=== PATIENT | male | born 1970 | race Caucasian/White ===

== ENCOUNTER 2018-02-11 09:29 | Emergency (ER) | payer OTHER, SELFPAY | END 2018-02-11 10:50 | disposition home or self-care (01) | PROVIDERS: Emergency Provider Emergency Medicine; Visit Provider Emergency Medicine | DX: J40 Bronchitis, not specified as acute or chronic (principal) | CPT/HCPCS: 71020; 71046; 99283 ==

== ENCOUNTER 2020-03-07 05:05 | Emergency (ER) | payer OTHER, SELFPAY ==
[2020-03-07 05:16] VITALS: BP 161/81; PULSE 72; RESP 18; TEMP 37; O2SAT 98; BMI 31.7
--- NOTE | 2020-03-07 05:25 | PC.NURSE ---
Pt states yesterday having uti symptoms with blood clots in urine. states unable to urinate starting about midnight. pain in pelvic area.
--- NOTE | 2020-03-07 05:25 | ED_ITS ---
HPI - Male Genitourinary General Chief complaint: Urogenital-Male Stated complaint: has uti, unable to uriante now, painful Time Seen by Provider: 03/07/20 05:25 Source: patient Mode of arrival: Ambulatory Limitations: no limitations History of Present Illness HPI Narrative: 49-year-old gentleman with mild asthma presents with 24 hours of dysuria, urgency and a single episode of hematuria. Notes no fevers but does have a dull backache, not specifically flank pain, no abdominal pain, no respiratory or cardiac symptoms, no rashes or diaphoresis. He notes that his last bowel movement was approximately 24 hours ago and he typically goes more frequently than that but does not feel particularly constipated. Symptoms started last night with urinary urgency and pain building a single episode of hematuria. He had a tele video appointment with his [facility] provider was diagnosed with the UTI and [place] [facility] [place] [facility] [place] he was unable to pick it up before the pharmacy closed yesterday. Woke up at 4:00 a.m. with severe pain and was unable to void. In the emergency department he had approximately 270 cc in his bladder and was able to successfully void with a postvoid residual around 20 cc. He did not have any clots in the urine sample given today. He denies any new sexual partners or penile discharge. Related Data Home Medications Medication Instructions Recorded Confirmed Vitamins 1 ea PO QDAY 02/22/18 02/22/18 fluticasone propion-salmeterol 1 inh INHALATION Q12H 02/22/18 02/22/18 [Advair Diskus] fluticasone propionate [Flonase 1 spray INTRANASAL DAILY PRN 02/22/18 02/22/18 Allergy Relief] naproxen 500 mg PO QDAY 02/22/18 02/22/18 Previous Rx's Medication Instructions Recorded phenazopyridine [Pyridium] 100 mg PO TID PRN #6 tab 03/07/20 sulfamethoxazole-trimethoprim 1 tab PO BID #10 tab 03/07/20 [Bactrim DS] Allergies Allergy/AdvReac Type Severity Reaction Status Date / Time No Known Drug Allergies Allergy Verified 02/22/18 11:10 Review of Systems Review of Systems Narrative: Remainder of review of systems including constitutional, ENT, cardiovascular, respiratory, GI, , musculoskeletal, skin, neurologic and psychiatric systems reviewed and are unremarkable except as noted in HPI. Patient History Medical History Asthma (Acute) Social History Smoking Status: Never smoker Smoking Status: Never smoker Substance Use Type: does not use Exam Narrative Exam Narrative: General: Alert appropriate in no acute distress Respiratory: Able to speak in full sentences, no obvious respiratory distress, no wheeze no rhonchi Cardiac: No murmurs, no tachycardia Abdomen: Soft, nontender nondistended no flank pain, no suprapubic tenderness Skin: No obvious rashes, warm and dry Neurologic: Grossly intact no obvious asymmetries or abnormalities Psych, appropriate insight and affect, cooperative Initial Vital Signs Initial Vital Signs: Vital Signs Temperature 98.6 F 03/07/20 05:16 Pulse Rate 72 03/07/20 05:16 Respiratory Rate 18 03/07/20 05:16 Blood Pressure 161/81 H 03/07/20 05:16 Pulse Oximetry 98 03/07/20 05:16 Course Orders Ordered: ED Orders 03/07/20 05:20 Urine Culture Stat Urine Microscopic Stat 03/07/20 05:48 Urinalysis Screen (Dip Only) Stat Discontinued Medications Phenazopyridine HCl (Pyridium) 200 mg PO NOW ONE Stop: 03/07/20 05:39 Last Admin: 03/07/20 05:50 Dose: 200 mg Documented by: RUBY Trimethoprim/Sulfamethoxazole (Bactrim Ds) 1 tab PO NOW ONE Stop: 03/07/20 05:39 Last Admin: 03/07/20 05:50 Dose: 1 tab Documented by: RUBY Vital Signs Vital signs: Vital Signs - 8 hr 03/07/20 05:16 Temperature 98.6 F Pulse Rate 72 Respiratory Rate 18 Blood Pressure 161/81 H Pulse Oximetry 98 MDM - Male Genitourinary Medical Records Attestation: I reviewed the patient's medical records. Lab Data Attestation: I reviewed the patient's lab results. Lab results narrative: Pre void residual 270 cc, postvoid residual 20 cc. Urine dip with large blood and large leukocytes. Labs: Lab Results 03/07/20 Range/Units 05:20 Urine RBC None seen (0-5/HPF) Urine WBC 10-30/hpf H (0-5/HPF) Ur Squamous Epith Cells 0-1 /hpf (0-5/HPF) Urine Bacteria Moderate (10-30) H (None) Ur Culture Indicated? Specimen cultured Urine Dip Bedside Urine Glucose Negative Bedside Urine Bilirubin - Negative Bedside Urine Ketone - Negative Urine Specific [place] 1.010 Bedside Urine Occult Blood +++ Bedside Urine pH 6.0 Bedside Urine Protein +/- 15 Bedside Urine Urobilinogen - Negative Bedside Urine Nitrite - Negative Bedside Urine Leukocytes +++ 500 Esterase MDM Narrative Medical decision making narrative: Presumptive UTI present for 24 hours. Will treat with Bactrim and peridium and begin both of those while he is here in the department this morning. Prescriptions given. No evidence of sepsis, renal stone, acute urinary retention, sexually transmitted infection, or pyelonephritis. Patient is safe for home discharge at this time. Discharge Plan Departure Patient Disposition: Home Clinical Impression: Urinary tract infection Qualifiers: Urinary tract infection type: acute cystitis Hematuria presence: with hematuria Qualified Code(s): N30.01 - Acute cystitis with hematuria Instructions: DI for Urinary Tract Infection (UTI) Activity Restrictions/Additional Instructions: Thank you for coming in tonight Your symptoms and description are all very consistent with a bladder infection. Wuith symptoms present for 24 hours, the low-grade back pain and the blood the sincere noticed in your urine I am going to suggest that we use 5 days of Bactrim, sulfa antibiotic, to treat your infection. Your urine has been collected and sent to the lab for culture. You will be contacted if we do need to change antibiotics for any reason. I have given you a dose of Pyridium, a medicine to help with the bladder spasm and relieve some of the pain that you are having. Prescriptions for 5 days of Septra and 3 days of peridium have been a electronically transmitted to [facility] on [address]. If you develop fevers, more pain in your kidney area, are unable to void at all, or other symptoms of concern, please return to the emergency room and I am happy to re-evaluate. I hope you feel better soon Prescriptions: New sulfamethoxazole-trimethoprim [Bactrim DS] 800-160 mg tablet 1 tab PO BID Qty: 10 RF: 0 phenazopyridine [Pyridium] 100 mg tablet 100 mg PO TID PRN (Reason: pain) Qty: 6 RF: 0 No Action fluticasone propion-salmeterol [Advair Diskus] 500-50 mcg/dose Blister With Device 1 inh INHALATION Q12H RF: 0 fluticasone propionate [Flonase Allergy Relief] 50 mcg/actuation [place],Suspension 1 spray INTRANASAL DAILY PRN (Reason: Allergy Symptoms) RF: 0 naproxen 500 mg Tablet,Delayed Release (Dr/Ec) 500 mg PO QDAY RF: 0 Vitamins 1 ea PO QDAY RF: 0
[2020-03-07 05:40] LABS: Bacteria Urine Moderate (10-30); Culture Indicated Urine Specimen Cultured; RBC Urine None Seen (0-5/HPF); Squamous Epithelial Cell Urine 0-1 /HPF (0-5/HPF); WBC Urine 10-30/HPF (0-5/HPF)
[2020-03-07] MEDS: PHENAZOPYRIDINE 100 MG TABLET 200 MG PO (05:50)
[2020-03-07] MEDS: TRIMETH/SULFA 160/800 (DS) TABLET 1 TAB PO (05:50)
--- NOTE | 2020-03-07 05:52 | PC.NURSE ---
Pt requested to go to the restroom to try again. this time patient was able to void and relieved pressure in pelvic area. repeated bladder scan.with low volume. states feels better after voiding.
[2020-03-07 06:05] VITALS: BP 159/84; PULSE 80; RESP 16; O2SAT 97
== END 2020-03-07 06:06 | disposition home or self-care (01) ==
PROVIDERS: Emergency Provider Emergency Medicine
DX: N30.01 Acute cystitis with hematuria (principal)
CPT/HCPCS: 51798; 81003; 81015; 87077; 87086; 87186; 99283

== ENCOUNTER 2022-11-01 10:50 | Emergency (ER) | payer OTHER, SELFPAY ==
[2022-11-01 11:09] VITALS: BP 122/76; PULSE 92; RESP 20; TEMP 36.6; O2SAT 96; BMI 31.7
--- NOTE | 2022-11-01 11:17 | DI.RAD.S_ITS ---
PROCEDURE: XR CHEST 1V INDICATIONS: Shortness of breath TECHNIQUE: One view of the chest was acquired. COMPARISON: [facility], CR, XR CHEST 2V, 02/22/2018, 10:02. FINDINGS: Surgical changes and devices: None. Lungs and pleura: Lungs are clear. No pleural effusions or pneumothorax. Mediastinum: Mediastinal contours appear normal. Heart size is normal. Bones and chest wall: No suspicious bony lesions. Overlying soft tissues appear unremarkable. IMPRESSION: No acute cardiopulmonary pathology. Dictated by: Selwyn Garner M.D. on 11/01/2022 at 11:37 Approved by: Selwyn Garner M.D. on 11/01/2022 at 11:37
[2022-11-01 11:56] LABS: Add Manual Diff / Slide Review NO; Basophils Absolute Auto 100 /uL (0-100); Basophils Percent Auto 0.3 % (0-2); Eosinophils Absolute Auto 0 /uL (0-450); Hematocrit 41.4 % (41-53); Hemoglobin 14.5 g/dL (13.5-17.5); Lymphocytes Absolute Auto 1800 /uL (1100-4500); Lymphocytes Percent Auto 10.6 % (25-40); Mean Corpuscular Hemoglobin 31.1 PG (26-34); Mean Corpuscular Volume 88.8 fL (80-100); Monocytes Absolute Auto 1400 /uL (0-900); Monocytes Percent Auto 8.2 % (3-14); Neutrophils Absolute Auto 13900 /uL (1500-7000); Neutrophils Percent Auto 80.9 % (50-75); Platelet Count 354 X10^3/uL (150-400); Red Blood Cell Count 4.66 X10^6/uL (4.5-5.9); White Blood Cell Count 17.3 X10^3/uL (4.5-11.0)
[2022-11-01 12:03] VITALS: PULSE 85; O2SAT 96
[2022-11-01 12:04] VITALS: BP 121/64; PULSE 75; O2SAT 97
[2022-11-01 12:05] LABS: Influenza A - CEPHEID Flu A NEGATIVE (NEGATIVE); Influenza B - CEPHEID Flu B NEGATIVE (NEGATIVE); Respiratory Syncytial Virus Negative (Negative)
[2022-11-01 12:05] LABS: Alanine Aminotransferase 28 IU/L (<50); Albumin 4.1 g/dL (3.5-5.0); Albumin Globulin Ratio 1.2 (1.0-2.8); Alkaline Phosphatase 50 U/L (38-126); Aspartate Aminotransferase 23 IU/L (17-59); Bilirubin Total 0.8 mg/dL (0.2-1.3); Blood Urea Nitrogen 18 mg/dL (9-20); Carbon Dioxide 26 mmol/L (22-32); Chloride 104 mmol/L (98-107); Estimated Glomerular Filt Rate > 60 mL/min (>60); Globulin 3.3 g/dL (1.7-4.1); Glucose 132 mg/dL (70-100); HEMOLYSIS < 15 (0-50); Lactate (Lactic Acid) 1.3 mmol/L (0.7-2.1); Potassium 4.4 mmol/L (3.4-5.1); Sodium 139 mmol/L (137-145); Total Protein 7.4 g/dL (6.3-8.2)
[2022-11-01 12:06] LABS: COVID-19 CEPHEID 4-PLEX PCR Negative (Negative)
--- NOTE | 2022-11-01 12:13 | ED.SOB ---
HPI - SOB/Dyspnea <Kameron Marie PA-C - Last Filed: 11/01/22 13:12> General Chief Complaint: Shortness of Breath/Dyspnea Stated Complaint: difficulty breathing, cough Time Seen by Provider: 11/01/22 11:57 Source: patient Mode of arrival: Ambulatory Limitations: no limitations History of Present Illness HPI Narrative: This is a 52-year-old male with a history of COPD and asthma presents to the emergency department complaining of shortness of breath onset 1 week ago. Patient states that his symptoms initially began with a URI symptoms, multiple COVID test negative, last week, the symptoms have improved states that the patient's shortness of breath has continued. He was seen at [facility] walk-in clinic 2 days ago where his albuterol dosing was increased and patient was given a course of prednisone. He has been taking the prednisone as prescribed without any significant relief of his shortness of breath. Denies any acute chest pain but does report some discomfort, denies fevers, swelling of the lower extremities, nausea, vomiting, abdominal pain, or any other concerning signs or symptoms. Related Data Home Medications Medication Instructions Recorded Confirmed Vitamins 1 ea PO QDAY 02/22/18 02/22/18 fluticasone 500 mcg-salmeterol 50 1 inh inhalation Q12H 02/22/18 02/22/18 mcg/dose blistr powdr for inhalation (Advair Diskus) fluticasone propionate 50 1 spray intranasal DAILY PRN 02/22/18 02/22/18 mcg/actuation nasal Allergy Symptoms spray,suspension (Flonase Allergy Relief) naproxen 500 mg tablet,delayed 500 mg PO QDAY 02/22/18 02/22/18 release Previous Rx's Medication Instructions Recorded phenazopyridine 100 mg tablet 100 mg PO TID PRN pain 6 doses #6 05/20/20 (Pyridium) tabs sulfamethoxazole 800 1 tab PO BID #10 tabs 05/20/20 mg-trimethoprim 160 mg tablet (Bactrim DS) benzonatate 100 mg capsule 100 mg PO BID PRN cough #20 caps 11/01/22 Allergies Allergy/AdvReac Type Severity Reaction Status Date / Time No Known Drug Allergies Allergy Verified 11/01/22 11:09 Review of Systems <Kameron Marie PA-C - Last Filed: 11/01/22 13:12> Review of Systems Narrative: GENERAL: Denies chills, fatigue, malaise, fever, sweats. HEENT: Denies sinus pain, ear pain, sore throat, difficulty swallowing, dizziness. RESPIRATORY: Reports shortness of breath, cough, denies wheezing, hemoptysis, sputum. CARDIOVASCULAR: Denies chest pain, palpitations, orthopnea, edema, GASTROINTESTINAL: Denies nausea, vomiting, abdominal pain, diarrhea, constipation, melena. : Denies dysuria, frequency, incontinence, hematuria, urinary retention. MUSCULOSKELETAL: denies weakness, joint pain, or bony pain SKIN: Denies rash, skin lesions, or other NEUROLOGIC: Denies weakness, headache, numbness, change in speech, confusion, seizures, incoordination. PSYCHIATRIC: No concerning psychosocial issues. 12 point review of systems is negative except for those stated above Patient History <Kameron Marie PA-C - Last Filed: 11/01/22 13:12> Medical History (Updated 11/01/22 @ 13:10 by Kameron Marie PA-C) Asthma Social History Smoking Status: Never smoker Smoking Status: Never smoker Substance Use Type: does not use Exam <Kameron Marie PA-C - Last Filed: 11/01/22 13:12> Narrative Exam Narrative: GENERAL: Well-developed patient, in mild distress. HEAD: Atraumatic. Normocephalic. EYES: Pupils equal round and reactive. Extraocular motions intact. No scleral icterus. No injection or drainage. ENT: Nose without bleeding, purulent drainage. Throat without erythema, tonsillar hypertrophy or exudate. Airway patent. NECK: Trachea midline. Non tender CARDIOVASCULAR: Regular rate and rhythm without murmurs, gallops, or rubs. RESPIRATORY: Clear to auscultation. Breath sounds equal bilaterally. No wheezes, rales, or rhonchi. GASTROINTESTINAL: Abdomen soft, non-tender, nondistended. EXTREMITIES: No edema or joint tenderness. BACK: Nontender without deformity or crepitance. No flank tenderness. NEURO: AOx3. SKIN: No rash or erythema of visible areas Initial Vital Signs Initial Vital Signs: Vital Signs Temperature 97.8 F 11/01/22 11:09 Pulse Rate 92 H 11/01/22 11:09 Respiratory Rate 20 11/01/22 11:09 Blood Pressure 122/76 11/01/22 11:09 Pulse Oximetry 96 11/01/22 11:09 Oxygen Delivery Method 11/01/22 11:09 <Iker Deluna DO - Last Filed: 11/02/22 06:36> Initial Vital Signs Initial Vital Signs: Vital Signs Temperature 97.8 F 11/01/22 11:09 Pulse Rate 92 H 11/01/22 11:09 Respiratory Rate 20 11/01/22 11:09 Blood Pressure 122/76 11/01/22 11:09 Pulse Oximetry 96 11/01/22 11:09 Oxygen Delivery Method 11/01/22 11:09 Course <Kameron Marie PA-C - Last Filed: 11/01/22 13:12> Orders Ordered: Discontinued Medications Albuterol/Ipratropium (Albuterol/Ipratropium 3 Ml Ampul) 3 ml INH NOW ONE Stop: 11/01/22 12:15 Last Admin: 11/01/22 12:18 Dose: 3 ml Documented By: NURA Methylprednisolone (Methylprednisolone 125 Mg/2 Ml Vial) 125 mg IV NOW ONE Stop: 11/01/22 12:25 Last Admin: 11/01/22 12:48 Dose: 125 mg Documented By: NR Vital Signs Vital signs: Vital Signs - 8 hr 11/01/22 11:09 11/01/22 12:03 11/01/22 12:18 Temperature 97.8 F Pulse Rate 92 H 85 86 Respiratory Rate 20 16 Blood Pressure 122/76 Pulse Oximetry 96 96 97 Oxygen Delivery Method Room Air Room Air Room Air <Iker Deluna DO - Last Filed: 11/02/22 06:36> Orders Ordered: Discontinued Medications Albuterol/Ipratropium (Albuterol/Ipratropium 3 Ml Ampul) 3 ml INH NOW ONE Stop: 11/01/22 12:15 Last Admin: 11/01/22 12:18 Dose: 3 ml Documented By: NURA Methylprednisolone (Methylprednisolone 125 Mg/2 Ml Vial) 125 mg IV NOW ONE Stop: 11/01/22 12:25 Last Admin: 11/01/22 12:48 Dose: 125 mg Documented By: NR Vital Signs Vital signs: Vital Signs - 8 hr 11/01/22 11:09 11/01/22 12:03 11/01/22 12:18 Temperature 97.8 F Pulse Rate 92 H 85 86 Respiratory Rate 20 16 Blood Pressure 122/76 Pulse Oximetry 96 96 97 Oxygen Delivery Method Room Air Room Air Room Air MDM - SOB/Dyspnea <Kameron Marie PA-C - Last Filed: 11/01/22 13:12> Lab Data Result diagrams: 11/01/22 11:40 11/01/22 11:40 Labs: Lab Results 11/01/22 11/01/22 11/01/22 Range/Units 11:15 11:40 11:40 WBC 17.3 H (4.5-11.0) X10^3/uL RBC 4.66 (4.5-5.9) X10^6/uL Hgb 14.5 (13.5-17.5) g/dL Hct 41.4 (41-53) % MCV 88.8 (80-100) fL MCH 31.1 (26-34) PG MCHC 35.0 (30-36) % RDW 13.0 (11.6-14.8) % Plt Count 354 (150-400) X10^3/uL Neut % (Auto) 80.9 H (50-75) % Lymph % (Auto) 10.6 L (25-40) % [place] % (Auto) 8.2 (3-14) % Eos % (Auto) 0.0 L (2-4) % Baso % (Auto) 0.3 (0-2) % Neut # (Auto) 40552 H (8620-4317) /uL Lymph # (Auto) 1800 (0922-2624) /uL [place] # (Auto) 1400 H (0-900) /uL Eos # (Auto) 0 (0-450) /uL Baso # (Auto) 100 (0-100) /uL D-Dimer (<500) ng/ml Sodium 139 (137-145) mmol/L Potassium 4.4 (3.4-5.1) mmol/L Chloride 104 (98-107) mmol/L Carbon Dioxide 26 (22-32) mmol/L BUN 18 (9-20) mg/dL Creatinine 0.75 (0.66-1.25) mg/dL Estimated GFR > 60 (>60) mL/min BUN/Creatinine Ratio 24.0 H (6-22) Glucose 132 H (70-100) mg/dL Lactate (0.7-2.1) mmol/L Calcium 9.0 (8.4-10.2) mg/dL Total Bilirubin 0.8 (0.2-1.3) mg/dL AST 23 (17-59) IU/L ALT 28 (<50) IU/L Alkaline Phosphatase 50 (38-126) U/L Troponin I < 0.012 (0.01-0.034) ng/mL NT-Pro-B Natriuret Pep 133 H (<125) pg/mL Total Protein 7.4 (6.3-8.2) g/dL Albumin 4.1 (3.5-5.0) g/dL Globulin 3.3 (1.7-4.1) g/dL Albumin/Globulin Ratio 1.2 (1.0-2.8) SARS-CoV-2 (PCR) Negative (Negative) Influenza A (RT-PCR) Flu a negative (NEGATIVE) Influenza B (RT-PCR) Flu b negative (NEGATIVE) RSV (PCR) Negative (Negative) 11/01/22 11/01/22 Range/Units 11:40 11:40 WBC (4.5-11.0) X10^3/uL RBC (4.5-5.9) X10^6/uL Hgb (13.5-17.5) g/dL Hct (41-53) % MCV (80-100) fL MCH (26-34) PG MCHC (30-36) % RDW (11.6-14.8) % Plt Count (150-400) X10^3/uL Neut % (Auto) (50-75) % Lymph % (Auto) (25-40) % [place] % (Auto) (3-14) % Eos % (Auto) (2-4) % Baso % (Auto) (0-2) % Neut # (Auto) (2962-3022) /uL Lymph # (Auto) (0030-6361) /uL [place] # (Auto) (0-900) /uL Eos # (Auto) (0-450) /uL Baso # (Auto) (0-100) /uL D-Dimer 329 (<500) ng/ml Sodium (137-145) mmol/L Potassium (3.4-5.1) mmol/L Chloride (98-107) mmol/L Carbon Dioxide (22-32) mmol/L BUN (9-20) mg/dL Creatinine (0.66-1.25) mg/dL Estimated GFR (>60) mL/min BUN/Creatinine Ratio (6-22) Glucose (70-100) mg/dL Lactate 1.3 (0.7-2.1) mmol/L Calcium (8.4-10.2) mg/dL Total Bilirubin (0.2-1.3) mg/dL AST (17-59) IU/L ALT (<50) IU/L Alkaline Phosphatase (38-126) U/L Troponin I (0.01-0.034) ng/mL NT-Pro-B Natriuret Pep (<125) pg/mL Total Protein (6.3-8.2) g/dL Albumin (3.5-5.0) g/dL Globulin (1.7-4.1) g/dL Albumin/Globulin Ratio (1.0-2.8) SARS-CoV-2 (PCR) (Negative) Influenza A (RT-PCR) (NEGATIVE) Influenza B (RT-PCR) (NEGATIVE) RSV (PCR) (Negative) Imaging Data Chest x-ray: Radiologist's Impression: [address] [address] XRay Report Signed Patient: Thomas Fox MR#: [id number] : 1970 Acct:[id number] Age/Sex: 52 / M Date of Service: 11/01/22 Loc: ED Accession Number: [id number] ?? Procedure: XR chest 1V Ordering Provider: Iker Deluna D.O. PROCEDURE:? XR CHEST 1V ? INDICATIONS:? Shortness of breath ? TECHNIQUE:? One view of the chest was acquired.? ? COMPARISON:? [facility], CR, XR CHEST 2V, 02/22/2018, 10:02. ? FINDINGS:? ? Surgical changes and devices:? None.? ? Lungs and pleura:? Lungs are clear.? No pleural effusions or pneumothorax.? ? Mediastinum:? Mediastinal contours appear normal.? Heart size is normal.? ? Bones and chest wall:? No suspicious bony lesions.? Overlying soft tissues appear unremarkable.? ? IMPRESSION:? No acute cardiopulmonary pathology. ? ? Dictated by: Selwyn Garner M.D. on 11/01/2022 at 11:37 ? ? Approved by: Selwyn Garner M.D. on 11/01/2022 at 11:37 ? ECG Data Interpretation: EKG is normal sinus rhythm rate 79 and free of any signs of ischemia or ectopy. No ST segmental elevation or depression. No T wave inversions MDM Narrative Medical decision making narrative: Is a 52-year-old male presents to the emergency department with a history of COPD complaining of increased shortness of breath after a suspected viral illness last week. Chest x-ray shows no evidence of pneumonia or any other lung abnormality that would explain the shortness of breath. Troponin EKG unremarkable and low concern for ACS. D-dimer negative and low concern for PE at this time. Suspect COPD exacerbation secondary to possible viral illness last week. Patient was giving a breathing treatment and IV steroids here in the emergency department, on recheck he stated he felt significantly better. Will discharge with instructions to complete the remaining 3 days' course of his prednisone given to him by his walk-in clinic as well as continuing his chronic albuterol use. Tessalon Perles also prescribed as patient stated had he had a somewhat dry. CC: Shortness of breath Complicating co-morbidities: COPD, asthma Data collected from: Previous records Medical records reviewed: Previous records show the patient has a history of asthma although was seen for urinary tract infection Differential considered, but not limited to: COPD exacerbation, asthma exacerbation, pneumonia, pulmonary embolism, ACS Exam documented above, pertinent findings include: Unremarkable exam Lab Test results independently reviewed as above. Pertinent findings: Patient labs showed leukocytosis although maybe due to recent prednisone use. Troponin within normal limits, low concern for ACS. D-dimer within normal limits, low concern for PE Independently reviewed EKG as above Imaging studies independently reviewed: Chest x-ray shows no evidence of pneumonia, pulmonary edema, pleural effusion, or any other abnormalities Scores Used: None MIPS Elements: None Consultations: None Treatments: Breathing treatment and IV steroids Re-evaluations: On re-evaluation patient's shortness of breath had improved Discussion: Discussed plan for discharge home with the patient who was agreeable Diagnosis: COPD exacerbation Disposition: see below, along with detailed discharge instructions that have been reviewed with patient as well as indications for ED re-evaluation and additional outpatient follow up <Iker Deluna DO - Last Filed: 11/02/22 06:36> Lab Data Labs: Lab Results 11/01/22 11/01/22 11/01/22 Range/Units 11:15 11:40 11:40 WBC 17.3 H (4.5-11.0) X10^3/uL RBC 4.66 (4.5-5.9) X10^6/uL Hgb 14.5 (13.5-17.5) g/dL Hct 41.4 (41-53) % MCV 88.8 (80-100) fL MCH 31.1 (26-34) PG MCHC 35.0 (30-36) % RDW 13.0 (11.6-14.8) % Plt Count 354 (150-400) X10^3/uL Neut % (Auto) 80.9 H (50-75) % Lymph % (Auto) 10.6 L (25-40) % [place] % (Auto) 8.2 (3-14) % Eos % (Auto) 0.0 L (2-4) % Baso % (Auto) 0.3 (0-2) % Neut # (Auto) 75993 H (5114-5850) /uL Lymph # (Auto) 1800 (7487-5270) /uL [place] # (Auto) 1400 H (0-900) /uL Eos # (Auto) 0 (0-450) /uL Baso # (Auto) 100 (0-100) /uL D-Dimer (<500) ng/ml Sodium 139 (137-145) mmol/L Potassium 4.4 (3.4-5.1) mmol/L Chloride 104 (98-107) mmol/L Carbon Dioxide 26 (22-32) mmol/L BUN 18 (9-20) mg/dL Creatinine 0.75 (0.66-1.25) mg/dL Estimated GFR > 60 (>60) mL/min BUN/Creatinine Ratio 24.0 H (6-22) Glucose 132 H (70-100) mg/dL Lactate (0.7-2.1) mmol/L Calcium 9.0 (8.4-10.2) mg/dL Total Bilirubin 0.8 (0.2-1.3) mg/dL AST 23 (17-59) IU/L ALT 28 (<50) IU/L Alkaline Phosphatase 50 (38-126) U/L Troponin I < 0.012 (0.01-0.034) ng/mL NT-Pro-B Natriuret Pep 133 H (<125) pg/mL Total Protein 7.4 (6.3-8.2) g/dL Albumin 4.1 (3.5-5.0) g/dL Globulin 3.3 (1.7-4.1) g/dL Albumin/Globulin Ratio 1.2 (1.0-2.8) SARS-CoV-2 (PCR) Negative (Negative) Influenza A (RT-PCR) Flu a negative (NEGATIVE) Influenza B (RT-PCR) Flu b negative (NEGATIVE) RSV (PCR) Negative (Negative) 11/01/22 11/01/22 Range/Units 11:40 11:40 WBC (4.5-11.0) X10^3/uL RBC (4.5-5.9) X10^6/uL Hgb (13.5-17.5) g/dL Hct (41-53) % MCV (80-100) fL MCH (26-34) PG MCHC (30-36) % RDW (11.6-14.8) % Plt Count (150-400) X10^3/uL Neut % (Auto) (50-75) % Lymph % (Auto) (25-40) % [place] % (Auto) (3-14) % Eos % (Auto) (2-4) % Baso % (Auto) (0-2) % Neut # (Auto) (0105-5784) /uL Lymph # (Auto) (1430-7764) /uL [place] # (Auto) (0-900) /uL Eos # (Auto) (0-450) /uL Baso # (Auto) (0-100) /uL D-Dimer 329 (<500) ng/ml Sodium (137-145) mmol/L Potassium (3.4-5.1) mmol/L Chloride (98-107) mmol/L Carbon Dioxide (22-32) mmol/L BUN (9-20) mg/dL Creatinine (0.66-1.25) mg/dL Estimated GFR (>60) mL/min BUN/Creatinine Ratio (6-22) Glucose (70-100) mg/dL Lactate 1.3 (0.7-2.1) mmol/L Calcium (8.4-10.2) mg/dL Total Bilirubin (0.2-1.3) mg/dL AST (17-59) IU/L ALT (<50) IU/L Alkaline Phosphatase (38-126) U/L Troponin I (0.01-0.034) ng/mL NT-Pro-B Natriuret Pep (<125) pg/mL Total Protein (6.3-8.2) g/dL Albumin (3.5-5.0) g/dL Globulin (1.7-4.1) g/dL Albumin/Globulin Ratio (1.0-2.8) SARS-CoV-2 (PCR) (Negative) Influenza A (RT-PCR) (NEGATIVE) Influenza B (RT-PCR) (NEGATIVE) RSV (PCR) (Negative) Discharge Plan Departure Patient Disposition: Home Clinical Impression: Acute exacerbation of chronic obstructive airways disease Instructions: DI for Asthma -- Adult, DI for Cough -- Adult Activity Restrictions/Additional Instructions: Thank you for coming to the [facility] Emergency Department today. As we discussed your chest x-ray showed was negative for pneumonia, or any other lung abnormality. Your blood work was non concerning and your EKG showed no evidence of a heart attack. We also ruled out a blood clot in your lung via blood work. I suspect this is a possible COPD exacerbation secondary to the possible viral illness you had last week. Please continue using the steroids prescribed as well as albuterol inhaler you already have. I hope you feel better soon. Prescriptions: New benzonatate 100 mg capsule 100 mg PO BID PRN (Reason: cough) Qty: 20 0RF No Action sulfamethoxazole-trimethoprim [Bactrim DS] 800-160 mg tablet 1 tab PO BID Qty: 10 0RF phenazopyridine [Pyridium] 100 mg tablet 100 mg PO TID PRN (Reason: pain) Qty: 6 0RF fluticasone propion-salmeterol [Advair Diskus] 500-50 mcg/dose Blister With Device 1 inh INHALATION Q12H fluticasone propionate [Flonase Allergy Relief] 50 mcg/actuation [place],Suspension 1 spray INTRANASAL DAILY PRN (Reason: Allergy Symptoms) naproxen 500 mg Tablet,Delayed Release (Dr/Ec) 500 mg PO QDAY Vitamins 1 ea PO QDAY Label Comments: patient states takes various vitamins when he remembers Stand Alone Forms: Patient Portal/API <Iker Deluna DO - Last Filed: 11/02/22 06:36> Cosign ED Attending Cosignature Attestation: I was immediately available in the department for consultation. This documentation has been reviewed and I agree with assessment and plan. Supervised by Iker Deluna DO
[2022-11-01 12:17] LABS: NT-proBNP (BNP-Adult 18+) 133 pg/mL (<125); Troponin I < 0.012 ng/mL (0.01-0.034)
[2022-11-01 12:18] VITALS: PULSE 86; RESP 16; O2SAT 97
[2022-11-01] MEDS: ALBUTEROL/IPRATROPIUM 3 ML AMPUL INH (12:18)
[2022-11-01 12:21] LABS: D Dimer 329 ng/ml (<500)
[2022-11-01 12:30] VITALS: BP 125/64; PULSE 78; RESP 20; O2SAT 95
[2022-11-01] MEDS: methylPREDNISolone 125 MG/2 ML VIAL IV (12:48)
[2022-11-01 13:00] VITALS: BP 111/63; PULSE 84; O2SAT 95
== END 2022-11-01 13:36 | disposition home or self-care (01) ==
PROVIDERS: Emergency Medicine; Emergency Provider Physician Assistant Medical
DX: J44.1 Chronic obstructive pulmonary disease with (acute) exacerbation (principal)
CPT/HCPCS: 0241U; 36415; 71045; 80053; 83605; 83880; 84484; 85025; 85379; 93005; 93010; 94150; 94640; 96374; 99284; J2930

== ENCOUNTER 2025-05-12 12:01 | Emergency (ER) | payer OTHER, SELFPAY ==
[2025-05-12 12:06] VITALS: BP 128/74; PULSE 105; RESP 18; TEMP 36.4; O2SAT 96; BMI 31.6
--- NOTE | 2025-05-12 12:21 | ED.ANIMALBIT ---
HPI - Animal Bite <Yaima Oconnell PA-C - Last Filed: 05/12/25 18:37> General Chief Complaint: Animal Bite Stated Complaint: kitten attack Time Seen by Provider: 05/12/25 12:11 Source: patient Mode of arrival: Ambulatory History of Present Illness HPI narrative: 54-year-old male presents with concern for puncture/scrapes to his left forearm and to his left thigh sustained from a feral kitten. Patient states that he and his help to get feral cats shots and get them uterus/spade. They have been taking care of [place] kittens in their home recently while they wait for them to be old enough to get the shots and to get fixed. Approximately an hour prior to the arrival to the ER he states he was using leather gloves but moved a kitten from the cage and the cat ??went crazy? and bit and scratched at him on his arm and leg. He stated he did wash the area with some warm water and put alcohol on 1 of the spots before applying topical antibiotic ointment. But he decided he should seek evaluation when he noticed that the sites on his forearm looked raised and red and pale and were developing a patchy border around the edges. He says they are slightly tender/painful. He also notes he feels ?anxious? and ?light?. He states he has allergies to pet dander and some seasonal environmental allergies but denies allergies to anything else and has never had significant allergic reaction. Related Data Home Medications ?Medication ?Instructions ?Recorded ?Confirmed Vitamins 1 ea PO QDAY 02/22/18 02/22/18 fluticasone 500 mcg-salmeterol 50 1 inh inhalation Q12H 02/22/18 02/22/18 mcg/dose blistr powdr for inhalation (Advair Diskus) fluticasone propionate 50 1 spray intranasal DAILY PRN 02/22/18 02/22/18 mcg/actuation nasal Allergy Symptoms spray,suspension (Flonase Allergy Relief) naproxen 500 mg tablet,delayed 500 mg PO QDAY 02/22/18 02/22/18 release Previous Rx's ?Medication ?Instructions ?Recorded phenazopyridine 100 mg tablet 100 mg PO TID PRN pain 6 doses #6 20 (Pyridium) tabs sulfamethoxazole 800 1 tab PO BID #10 tabs 0520/20 mg-trimethoprim 160 mg tablet (Bactrim DS) benzonatate 100 mg capsule 100 mg PO BID PRN cough #20 caps 11/01/22 amoxicillin 875 mg-potassium 1 tab PO Q12H Cat bite/scratch 05/12/25 clavulanate 125 mg tablet prophylaxis 7 days #14 tabs Allergies Allergy/AdvReac Type Severity Reaction Status Date / Time pet dander Allergy Uncoded 05/12/25 12:06 Review of Systems <Yaima Oconnell PA-C - Last Filed: 05/12/25 18:37> Review of Systems Narrative: See HPI Patient History <Yaima Oconnell PA-C - Last Filed: 05/12/25 18:37> Medical History (Updated 05/12/25 @ 13:03 by Yaima Oconnell PA-C) Asthma Social History Smoking Status: Former smoker Smoking Status: Former smoker Exam <Yaima Oconnell PA-C - Last Filed: 05/12/25 18:37> Narrative Exam Narrative: GENERAL: [54] year old patient appears stated age. Well-developed patient, in mild distress. HEAD: Atraumatic. Normocephalic. EYES: Pupils equal round and reactive. Extraocular motions intact. No scleral icterus. No injection or drainage. ENT: Nose without bleeding, purulent drainage. Throat without erythema, tonsillar hypertrophy or exudate. No angioedema noted. Airway patent. NECK: Trachea midline. Non tender CARDIOVASCULAR: Slightly tachycardic but Regular rate and rhythm without murmurs, gallops, or rubs. RESPIRATORY: Clear to auscultation. Breath sounds equal bilaterally. No wheezes, rales, or rhonchi. GASTROINTESTINAL: Abdomen nondistended. EXTREMITIES: There are a few pink spots with central scratches/superficial puncture wounds on the patient's left low medial thigh. The patient's left forearm proximal to the wrist on the anterior aspect also has 2 patches that are moderately erythematous raised/papular with irregular borders approximately 2.5 cm in diameter with central puncture/scratch wounds. These have a allergic type appearance with a pale/hive-like centers. Slightly tender to touch. No other edema or joint tenderness. NEURO: AOx3. SKIN: See extremities No other rash or erythema of visible areas Initial Vital Signs Initial Vital Signs: Vital Signs Temperature 97.6 F 05/12/25 12:06 Pulse Rate 105 H 05/12/25 12:06 Respiratory Rate 18 05/12/25 12:06 Blood Pressure 128/74 05/12/25 12:06 Pulse Oximetry 96 05/12/25 12:06 Oxygen Delivery Method Room Air 05/12/25 12:06 <Daniel Field MD - Last Filed: 05/13/25 15:10> Initial Vital Signs Initial Vital Signs: Vital Signs Temperature 97.6 F 05/12/25 12:06 Pulse Rate 105 H 05/12/25 12:06 Respiratory Rate 18 05/12/25 12:06 Blood Pressure 128/74 05/12/25 12:06 Pulse Oximetry 96 05/12/25 12:06 Oxygen Delivery Method Room Air 05/12/25 12:06 Course <Yaima Oconnell PA-C - Last Filed: 05/12/25 18:37> Orders Ordered: Discontinued Medications Amoxicillin/Clavulanate Potassium (Amoxicillin/Clav 875/125 Mg) 1 tab PO NOW ONE Stop: 05/12/25 12:22 Last Admin: 05/12/25 12:26 Dose: 1 tab Documented By: MIRELA Famotidine (Famotidine 20 Mg Tablet) 20 mg PO NOW ONE Stop: 05/12/25 12:20 Last Admin: 05/12/25 12:26 Dose: 20 mg Documented By: MIRELA Loratadine (Loratadine 10 Mg Tablet) 10 mg PO NOW ONE Stop: 05/12/25 12:19 Last Admin: 05/12/25 12:29 Dose: 10 mg Documented By: MIRELA Vital Signs Vital signs: Vital Signs - 8 hr 05/12/25 12:06 05/12/25 12:55 Temperature 97.6 F Pulse Rate 105 H 90 Respiratory Rate 18 16 Blood Pressure 128/74 117/71 Pulse Oximetry 96 99 Oxygen Delivery Method Room Air Room Air <Daniel Field MD - Last Filed: 05/13/25 15:10> Orders Ordered: Discontinued Medications Amoxicillin/Clavulanate Potassium (Amoxicillin/Clav 875/125 Mg) 1 tab PO NOW ONE Stop: 05/12/25 12:22 Last Admin: 05/12/25 12:26 Dose: 1 tab Documented By: MIRELA Famotidine (Famotidine 20 Mg Tablet) 20 mg PO NOW ONE Stop: 05/12/25 12:20 Last Admin: 05/12/25 12:26 Dose: 20 mg Documented By: MIRELA Loratadine (Loratadine 10 Mg Tablet) 10 mg PO NOW ONE Stop: 05/12/25 12:19 Last Admin: 05/12/25 12:29 Dose: 10 mg Documented By: MIRELA Vital Signs Vital signs: Vital Signs - 8 hr 05/12/25 12:06 05/12/25 12:55 Temperature 97.6 F Pulse Rate 105 H 90 Respiratory Rate 18 16 Blood Pressure 128/74 117/71 Pulse Oximetry 96 99 Oxygen Delivery Method Room Air Room Air MDM - Animal Bite <Yaima Oconnell PA-C - Last Filed: 05/12/25 18:37> Differential Diagnosis Differential diagnosis: Likely cat bite (Cat scratch, localized allergic reaction) MDM Narrative Medical decision making narrative: This is a 54-year-old male with concern for swelling and possible allergic reaction/developing infection at the site of puncture/scratch wounds from kittens sustained about an hour prior to arrival in the ER. Superficial injury to his left low medial thigh does not appear infected at this time or evidence of allergic reaction. However his left forearm wounds do appear to be having a localized allergic reaction. We discussed treatment options. Patient has no signs of anaphylaxis although he was slightly tachycardic when he arrives and reports mild anxiety. Lungs clear no angioedema/oral swelling or GI distress. No other rash of the skin. Patient was treated with 1st dose of Augmentin as prophylaxis against infection, as well as loratadine and famotidine antihistamines. Patient was monitored in the ER with no worsening symptoms developing. I have low suspicion for a severe allergic reaction. After administration of antihistamines the swelling and redness and patchiness of the edges of his forearm wounds did improve notably and he also reported no longer feeling anxious. Patient was advised to continue antihistamines OTC for the next 1-2 days and prescription for Augmentin for 7 day course for prophylaxis against infection. The wounds were washed out and scrubbed with chlorhexidine while patient was in the ER. Rabies is very rare in feral cats and this was a provoked attack. Rabies prophylaxis/treatment is not pursued. Return precautions provided, follow-up plan discussed, all questions answered. Discharge Plan Departure Patient Disposition: Home Clinical Impression: Cat bite of left forearm Qualifiers: Encounter type: initial encounter Qualified Code(s): S51.852A - Open bite of left forearm, initial encounter Cat scratch of forearm Qualifiers: Encounter type: initial encounter Laterality: left Qualified Code(s): S50.812A - Abrasion of left forearm, initial encounter Cat bite of left thigh Qualifiers: Encounter type: initial encounter Qualified Code(s): S71.152A - Open bite, left thigh, initial encounter Allergic reaction Qualifiers: Encounter type: initial encounter Qualified Code(s): T78.40XA - Allergy, unspecified, initial encounter Instructions: DI for Cat Bite Activity Restrictions/Additional Instructions: *You have been diagnosed with [cat bite/scratches of left forearm and left thigh; localized allergic reaction] *What to do: *Please continue to take your regular medications as directed. [1 ] New medication prescriptions sent to your pharmacy: [Augmentin] [ ] New medication written as a paper prescription [ ] No new medications given *Please follow up with your primary care provider in 2-3 days, call for an appointment. Let them know you were seen in the Emergency Department and that we ask that you be seen in follow up. We will electronically transmit a record of today's note if your PCP is in our system. You came in today with concern for swelling at the site where you however bitten/scratched by a feral kitten on your forearm and thigh. It appears that you did have a localized allergic reaction possibly to the saliva or something in the cat's mouth or under it is closed. We gave you some oral antihistamines and your symptoms improved. We also gave you a 1st dose of antibiotic for prophylaxis against infection. Cat bites and scratches are a very high-risk for infection whenever there is broken skin. I sent in a prescription for continued antibiotic to [facility] for 7 days please take this as prescribed every 12 hours you can take your next dose tonight even if it was slightly less than 12 hours from your 1st dose administered today in the ER. I also recommend you may want to take Zyrtec or Claritin and famotidine for the next 1-2 days to reduce histamine levels and allergic reaction type symptoms. Certainly monitor for signs of a more severe allergic reaction however after monitoring you in the ER for approximately an hour this did not develop and you have no history of severe allergic reaction so hopefully you will do just fine. I hope you feel better soon make sure you get re-evaluated if you have any concern for recurrent allergic reaction or worsening symptoms or infection. *If you do not have a primary care provider please contact the [facility] Resource line at [phone]. They will ask some questions about your medical history and help get you set up with a doctor in the community. *Return to Emergency Department if you should have any new, worsening or concerning symptoms, such as [fever greater than 101 F, shaking chills, worsening pain, persistent vomiting or other bothersome symptoms] Prescriptions: New amoxicillin-pot clavulanate 875-125 mg tablet 1 tab PO Q12H 7 Days Qty: 14 0RF No Action sulfamethoxazole-trimethoprim [Bactrim DS] 800-160 mg tablet 1 tab PO BID Qty: 10 0RF phenazopyridine [Pyridium] 100 mg tablet 100 mg PO TID PRN (Reason: pain) Qty: 6 0RF fluticasone propion-salmeterol [Advair Diskus] 500-50 mcg/dose Blister With Device 1 inh INHALATION Q12H fluticasone propionate [Flonase Allergy Relief] 50 mcg/actuation [place],Suspension 1 spray INTRANASAL DAILY PRN (Reason: Allergy Symptoms) naproxen 500 mg Tablet,Delayed Release (Dr/Ec) 500 mg PO QDAY Vitamins 1 ea PO QDAY Patient Comments: patient states takes various vitamins when he remembers benzonatate 100 mg capsule 100 mg PO BID PRN (Reason: cough) Qty: 20 0RF Stand Alone Forms: Patient Portal/API ED Sign-out <Daniel Field MD - Last Filed: 05/13/25 15:10> Cosign ED Attending Darin Attestation: I was readily available for consultation at all times. I agree with assessment and plan of care
[2025-05-12] MEDS: AMOXICILLIN/CLAV 875/125 MG 1 TAB PO (12:26)
[2025-05-12] MEDS: FAMOTIDINE 20 MG TABLET PO (12:26)
[2025-05-12] MEDS: LORATADINE 10 MG TABLET PO (12:29)
[2025-05-12 12:55] VITALS: BP 117/71; PULSE 90; RESP 16; O2SAT 99
== END 2025-05-12 13:07 | disposition home or self-care (01) ==
PROVIDERS: Emergency Provider Student in an Organized Health Care Education/Training Program
DX: S51.852A Open bite of left forearm, initial encounter (principal); S50.812A Abrasion of left forearm, initial encounter; S71.152A Open bite, left thigh, initial encounter; T78.40XA Allergy, unspecified, initial encounter; W55.01XA Bitten by cat, initial encounter
CPT/HCPCS: 99283; A9270